=== PATIENT | male | born 1980 | race Caucasian/White ===

== ENCOUNTER 2021-06-03 21:52 | Inpatient (IN) | payer OTHER ==
[~2021-06-03] VITALS: Ht 170.2 cm; Wt 109.1 kg
[~2021-06-03 21:52] MED LIST: CYCLOBENZAPRINE10 MG PO; PREDNISONE50 MG PO
[2021-06-03 22:40] LABS: BASOPHIL 0 % (0-2); EOSINOPHIL 0 % (0-5); HCT 46.3 % (42.0-52.0); HGB 15.5 g/dl (13.2-18.0); LYMPHOCYTE 23.6 % (15-48); MCHC 33.5 g/dL (32.0-36.0); MCV 86.5 fL (78.0-100.0); MONOCYTE 6.2 % (0-12); MPV 9.7 fL (6.0-9.5); NRBC 0; PLT 119 K/uL (150-400); RBC 5.35 M/uL (4.70-6.00); RDW 13.7 % (11.5-14.0); WBC 3.6 K/uL (4.0-10.5)
[2021-06-03 22:52] LABS: INR 1.05 (0.9-1.2); PROTHROMBIN TIME 13.1 SECONDS (11.8-13.4); PTT 36.8 SECONDS (24.4-34.7)
[2021-06-03 22:53] LABS: D-DIMER 1.06 ug/mLFEU (0.00-0.41)
[2021-06-03 22:54] LABS: NEUTROPHIL 69.9 % (41-80)
[2021-06-03 23:06] LABS: LACTIC ACID 1.8 mmol/L (0.4-1.9)
[2021-06-03 23:39] LABS: ALBUMIN 2.9 g/dL (3.4-5.0); BILIRUBIN - TOTAL 0.5 mg/dL (0.2-1.0); BUN/CREAT RATIO (CALC) 16.1 RATIO; C-REACTIVE PROTEIN 13.5 mg/dL (<=0.90); CREATININE 1.18 mg/dL (0.67-1.17); MAGNESIUM 2.4 mg/dL (1.8-2.4); TOTAL PROTEIN 6.9 g/dL (6.4-8.2)
[2021-06-04 07:33] LABS: BASOPHIL 0 % (0-2); EOSINOPHIL 0 % (0-5); HCT 45.9 % (42.0-52.0); HGB 15.3 g/dl (13.2-18.0); LYMPHOCYTE 12.9 % (15-48); MCH 28.7 pg (25.0-31.0); MCHC 33.3 g/dL (32.0-36.0); MCV 86.1 fL (78.0-100.0); MONOCYTE 4.7 % (0-12); MPV 9.9 fL (6.0-9.5); NEUTROPHIL 82.1 % (41-80); NRBC 0; PLT 132 K/uL (150-400); RBC 5.33 M/uL (4.70-6.00); RDW 13.5 % (11.5-14.0); WBC 3.2 K/uL (4.0-10.5)
[2021-06-04 07:45] LABS: BUN/CREAT RATIO (CALC) 22.6 RATIO; CREATININE 0.84 mg/dL (0.67-1.17); POTASSIUM 4.6 mmol/L (3.5-5.1)
[2021-06-05 04:01] LABS: BILIRUBIN NEGATIVE (NEGATIVE); BLOOD NEGATIVE Ery/uL (NEGATIVE); CLARITY CLEAR (CLEAR); COLOR YELLOW (YELLOW); GLUCOSE (U) TRACE mg/dL (NORMAL); LEUKOCYTES NEGATIVE Leu/uL (NEGATIVE); NITRITE NEGATIVE (NEGATIVE); PROTEIN 1+ mg/dL (NEGATIVE); UROBILINOGEN 0.2 mg/dL (0.2-1.0)
[2021-06-05 04:10] LABS: AMORPHOUS URATES CRYSTALS TRACE; BACTERIA TRACE; MUCOUS TRACE
[2021-06-06 04:24] LABS: BASOPHIL 0.1 % (0-2); EOSINOPHIL 0 % (0-5); HCT 41.8 % (42.0-52.0); HGB 13.6 g/dl (13.2-18.0); MCH 28.7 pg (25.0-31.0); MCHC 32.5 g/dL (32.0-36.0); MCV 88.2 fL (78.0-100.0); MONOCYTE 10.8 % (0-12); MPV 9.8 fL (6.0-9.5); NEUTROPHIL 81.4 % (41-80); NRBC 0; PLT 184 K/uL (150-400); RBC 4.74 M/uL (4.70-6.00)
[2021-06-06 04:39] LABS: WBC 6.7 K/uL (4.0-10.5)
[2021-06-06 05:12] LABS: ALBUMIN 2.4 g/dL (3.4-5.0); BILIRUBIN - TOTAL 0.4 mg/dL (0.2-1.0); BUN/CREAT RATIO (CALC) 26.4 RATIO; C-REACTIVE PROTEIN 3.3 mg/dL (<=0.90); CREATININE 0.91 mg/dL (0.67-1.17); GLOBULIN (CALCULATION) 3.6 g/dL; POTASSIUM 4.2 mmol/L (3.5-5.1)
[2021-06-08 05:25] LABS: BASOPHIL 0.2 % (0-2); EOSINOPHIL 0 % (0-5); HCT 46.3 % (42.0-52.0); HGB 15.2 g/dl (13.2-18.0); LYMPHOCYTE 7.1 % (15-48); MCH 28.8 pg (25.0-31.0); MCHC 32.8 g/dL (32.0-36.0); MCV 87.9 fL (78.0-100.0); MONOCYTE 3.9 % (0-12); MPV 9.6 fL (6.0-9.5); NEUTROPHIL 87.5 % (41-80); NRBC 0; PLT 262 K/uL (150-400); RBC 5.27 M/uL (4.70-6.00); RDW 13.5 % (11.5-14.0); WBC 10.4 K/uL (4.0-10.5)
[2021-06-08 06:22] LABS: ALBUMIN 2.5 g/dL (3.4-5.0); BILIRUBIN - TOTAL 0.7 mg/dL (0.2-1.0); BUN/CREAT RATIO (CALC) 33.8 RATIO; C-REACTIVE PROTEIN 4.5 mg/dL (<=0.90); CREATININE 0.8 mg/dL (0.67-1.17); GLOBULIN (CALCULATION) 3.9 g/dL; POTASSIUM 4.5 mmol/L (3.5-5.1); TOTAL PROTEIN 6.4 g/dL (6.4-8.2)
--- NOTE | 2021-06-08 09:04 | NUR ---
0850--PATIENT INTUBATED AT THIS TIME SIZE 8 EXTRA LINE STARTED #20 IN RAC 140 SUX GIVEN, 50 YAO GIVEN 150 PROPOFOL GIVEN NS BOLUS RUNNING PATIENT HAS HAD TOTAL OF 7MG VERSED MD NOW PLACING IJ
[2021-06-09 04:36] LABS: BASOPHIL 0.1 % (0-2); EOSINOPHIL 0.2 % (0-5); HCT 40.2 % (42.0-52.0); HGB 13.6 g/dl (13.2-18.0); LYMPHOCYTE 8.8 % (15-48); MCHC 33.8 g/dL (32.0-36.0); MCV 85.7 fL (78.0-100.0); MONOCYTE 3.1 % (0-12); MPV 9.8 fL (6.0-9.5); NEUTROPHIL 85.8 % (41-80); NRBC 0; PLT 229 K/uL (150-400); RBC 4.69 M/uL (4.70-6.00); RDW 13.2 % (11.5-14.0)
[2021-06-09 05:34] LABS: BUN/CREAT RATIO (CALC) 24.3 RATIO; C-REACTIVE PROTEIN 11.7 mg/dL (<=0.90); CREATININE 0.74 mg/dL (0.67-1.17)
--- NOTE | 2021-06-09 19:37 | NUR ---
BRONCH PREFORMED WITH DR. CARR. MINIMAL THICK GUALLPA SECRETIONS. ET TUBE IN GOOD POSITION, NOT KINKED. STACY SUCTION CATHETER CHANGED. INSP PRESSURE CHANGED TO [address] CARR
--- NOTE | 2021-06-09 21:53 | NUR ---
PATIENT HAS HAD SEVERAL PERIODS OF DESAT TO 85-86% WITHOUT IMPROVEMENT. PATIENT SUCTIONED, PEEP INCREASED TO 16 FROM 15/ PATIENT TAKEN OFF VENT AND BAGGED WELL WITH NO RESISTANCE. PLACED BACK ON VENT. NO SECRETIONS OBTAINED. MULTIPLE PULSE OX SITES CHECKED WITH SAME READING DESPITE COLD EXTREMITIES. ABG OBTAINED TO SHOW PO2 50.7 WITH SAT 82.3% NOTIFIED THELMA PALACIOS.
--- NOTE | 2021-06-09 23:13 | NUR ---
PATIENT ATTEMPTED TO PRONE DUE TO POOR OXYGENATION AND INCREASING HYPOXIA. PATIENT TUBE BOYER WAS REPLACED WITH TRAC TIES AND ALL PROTOCALS FOLLOWED FOR FLIP. ET TUBE REMAINED IN GOOD CONDITION ONCE PRONE, BUT PATIENT BECAME BRADYCARDIC AND BEGAN TO DESAT TO LOW 69%. PATIENT WAS EMERGENTLY FLIPPED BACK SUPINE AND OXYGEN SAT IMPROVED TO 100%. THELMA PALACIOS AT BEDSIDE AND PATIENT TO REMAIN SUPINE AND COMPLETELY FLAT DUE TO BEST OXYGENATION THIS SHIFT. ET TUBE BOYER PLACED ON AND PATIENT REMAINED AT 26 @LIP. SUCTION CATHETER PASSED WELL AND CLEAR SECRETIONS OBTAINED. PATIENT HAS FAINT INSP WHEEZES THROUGHOUT. EXHALED VT REMAINS ADEQUATE. CONTINUE TO MONITOR PATIENT
[2021-06-10 04:31] LABS: BASOPHIL 0.1 % (0-2); EOSINOPHIL 0.1 % (0-5); HCT 41.9 % (42.0-52.0); HGB 13.7 g/dl (13.2-18.0); LYMPHOCYTE 3.2 % (15-48); MCH 28.7 pg (25.0-31.0); MCHC 32.7 g/dL (32.0-36.0); MCV 87.8 fL (78.0-100.0); MONOCYTE 2.8 % (0-12); MPV 9.7 fL (6.0-9.5); NRBC 0; PLT 243 K/uL (150-400); RBC 4.77 M/uL (4.70-6.00); RDW 13.6 % (11.5-14.0); WBC 13.5 K/uL (4.0-10.5)
[2021-06-10 04:48] LABS: BUN/CREAT RATIO (CALC) 29.2 RATIO; CREATININE 0.65 mg/dL (0.67-1.17); MAGNESIUM 2.2 mg/dL (1.8-2.4); POTASSIUM 4.8 mmol/L (3.5-5.1)
[2021-06-11 05:14] LABS: BASOPHIL 0.1 % (0-2); EOSINOPHIL 0.7 % (0-5); HCT 38.3 % (42.0-52.0); HGB 12.4 g/dl (13.2-18.0); LYMPHOCYTE 4.4 % (15-48); MCH 28.7 pg (25.0-31.0); MCHC 32.4 g/dL (32.0-36.0); MCV 88.7 fL (78.0-100.0); NEUTROPHIL 90.7 % (41-80); NRBC 0; PLT 242 K/uL (150-400); RBC 4.32 M/uL (4.70-6.00); RDW 13.6 % (11.5-14.0)
[2021-06-11 05:51] LABS: WBC 8.4 K/uL (4.0-10.5)
[2021-06-11 06:02] LABS: C-REACTIVE PROTEIN 17.3 mg/dL (<=0.90); CREATININE 0.56 mg/dL (0.67-1.17); POTASSIUM 4.6 mmol/L (3.5-5.1)
[2021-06-12 04:36] LABS: BASOPHIL 0.1 % (0-2); EOSINOPHIL 0 % (0-5); MCH 28.8 pg (25.0-31.0); MCHC 31.8 g/dL (32.0-36.0); MCV 90.5 fL (78.0-100.0); MONOCYTE 3.3 % (0-12); MPV 9.4 fL (6.0-9.5); NEUTROPHIL 91.8 % (41-80); NRBC 0; PLT 294 K/uL (150-400); RBC 4.86 M/uL (4.70-6.00); RDW 13.7 % (11.5-14.0)
[2021-06-12 04:39] LABS: WBC 8.8 K/uL (4.0-10.5)
[2021-06-12 05:27] LABS: BUN/CREAT RATIO (CALC) 32.7 RATIO; CREATININE 0.55 mg/dL (0.67-1.17); POTASSIUM 4.9 mmol/L (3.5-5.1)
--- NOTE | 2021-06-12 06:35 | NUR ---
CHANGED VECURONIUM FROM 0.4 MCK TO 0.6 MCG AT 0430. CHANGED VECURONIUM FROM 0.6 MCG TO 0.8 MCG AT 0440 CHANGED VECURONIUM FROM 0.8 TO 1.0 MCG AT 0450 DUE TO PT MOVING HEAD WHILE PRONED. CHANGED VECURONIUM FROM 1.0 TO 1.2 MCG AT 0500 DUE TO PT CONTINUING TO MOVE HEAD WHILE PRONED. PATIENT RESTING AFTER LAST CHANGE.
[2021-06-14 04:25] LABS: BASOPHIL 0 % (0-2); EOSINOPHIL 1.2 % (0-5); HCT 41.2 % (42.0-52.0); HGB 13.2 g/dl (13.2-18.0); LYMPHOCYTE 11.7 % (15-48); MCH 28.7 pg (25.0-31.0); MCV 89.6 fL (78.0-100.0); MONOCYTE 3.9 % (0-12); MPV 9.6 fL (6.0-9.5); NEUTROPHIL 82.7 % (41-80); NRBC 0; PLT 251 K/uL (150-400); WBC 8.5 K/uL (4.0-10.5)
[2021-06-14 04:47] LABS: BUN/CREAT RATIO (CALC) 33.9 RATIO; C-REACTIVE PROTEIN 1.2 mg/dL (<=0.90); CREATININE 0.56 mg/dL (0.67-1.17); POTASSIUM 4.4 mmol/L (3.5-5.1)
--- NOTE | 2021-06-14 14:57 | NUR ---
PT RECIEVED BED AT [facility] AROUND 1330. REPORT WAS CALLED BY PJ BOSS TO [facility]. 1336. [facility] WAS NOTIFIED OF TRANSFER AND ARRIVED AT 1400. PT WAS TRANSPORTED VIA STAT FLIGHT ON PORTABLE VENT, SETTING AC RATE 30 FIO2 95% TIDAL 470 PEEP 10. PT HAS 8 ET TUBE 25@LIP WITH OG. TUBE FEEDS WERE HELD DURING TRANSFER. GLUCOSE RECHECK WAS 171. PT HAS RIJ TRIPLE LUMEN WITH FENTANYL @ 15 ML, VERSED @ 6 ML, VEC @ 66.6 ML, AND DIPRAVAN AT 20.6 ML. PT HAS MCCRARY, PT HAS RIGHT RADIAL A LINE. PT BELONGINGS INCLUDED SHOES, 2 PAIRS PANTS, ONE SHIRT, 4 SOCKS, CELL PHONE, SURGERY SPECIALIST. NO RINGS WERE FOUND. THIS RN CALLED PT SPOUSE AT 1347 WITH INTERPRETUR TO GET PERMISSION TO TRANSFER PT TO [facility].
== END 2021-06-14 14:34 | disposition other institution (70) | DRG 207 ==
LOC: FER 21:52 → FTCU 06-04 02:51 → FER 06-04 02:51 → FTCU 06-07 08:09
PROVIDERS: Allergy & Immunology Allergy; Emergency Medicine; Nurse Practitioner; ADMIT Internal Medicine
PROC: XW033E5 Introduction of Remdesivir Anti-infective into Peripheral Vein, Percutaneous Approach, New Technology Group 5 (ICD-10-PCS; 2021-06-04)
PROC: 5A0955A Assistance with Respiratory Ventilation, Greater than 96 Consecutive Hours, High Flow/Velocity Cannula (ICD-10-PCS; 2021-06-04)
PROC: XW0DXM6 Introduction of Baricitinib into Mouth and Pharynx, External Approach, New Technology Group 6 (ICD-10-PCS; 2021-06-04)
PROC: 5A1955Z Respiratory Ventilation, Greater than 96 Consecutive Hours (ICD-10-PCS; principal; 2021-06-08)
PROC: 0BH17EZ Insertion of Endotracheal Airway into Trachea, Via Natural or Artificial Opening (ICD-10-PCS; 2021-06-08)
PROC: 02HV33Z Insertion of Infusion Device into Superior Vena Cava, Percutaneous Approach (ICD-10-PCS; 2021-06-08)
PROC: B548ZZA Ultrasonography of Superior Vena Cava, Guidance (ICD-10-PCS; 2021-06-08)
PROC: 0BJ08ZZ Inspection of Tracheobronchial Tree, Via Natural or Artificial Opening Endoscopic (ICD-10-PCS; 2021-06-09)
DX: U07.1 COVID-19 (principal); J12.82 Pneumonia due to coronavirus disease 2019; J96.01 Acute respiratory failure with hypoxia; J96.02 Acute respiratory failure with hypercapnia; D70.9 Neutropenia, unspecified
CPT/HCPCS: 31500; 36415; 36600; 71045; 71275; 80048; 80053; 81001; 82728; 82803; 82962; 83605; 83615; 83735; 83880; 84145; 84478; 84484; 85025; 85379; 85610; 85730; 86140; 87040; 94002; 94010; 94640; 94667; 94668; C1751; C9113; C9399; J0456; J1100; J1650; J1940; J2060; J2250; J2405; J2704; J3010; J3262; J3480; J7030; J7050; Q9967; U0002